=== PATIENT | female | born 1990 | race Caucasian/White ===

== ENCOUNTER 2019-12-05 19:57 | Observation (INO) ==
[2019-12-05 21:33] LABS: Bacteria,Urine Few per hpf (None-Few); Bilirubin,Urine Negative (Negative); Blood,Urine Trace (Negative); Budding Yeast,Urine Moderate per hpf (None Seen); Clarity,Urine Turbid (Clear); Color,Urine Yellow (Yellow); Glucose,Urine (UA) Normal (Normal); Ketones,Urine Negative (Negative); Leukocyte Esterase,Urine Large (Negative); Mucus,Urine Few per lpf (None-Few); Nitrite,Urine Positive (Negative); Protein,Urine Trace mg/dL (Neg-Trace); RBC,Urine 15-30 per hpf (0-3); Renal Epithelial Cells,Urine Few per hpf (None-Few); Specific Gravity,Urine 1.014 (1.010-1.025); Squamous Epithelial Cell,Urine Moderate per hpf (None-Few); Transitional Epi Cells,Urine Few per hpf (None-Few); Urobilinogen,Urine Normal (Normal); WBC,Urine TNTC per hpf (0-3)
[2019-12-05 22:19] LABS: Basophils % 0.3 %; Eosinophils % 0.3 %; Hematocrit 35.5 % (35.3-44.9); Hemoglobin 11.3 g/dL (11.5-15.4); Immature Granulocytes % 0.8 % (0-4); Lymphocytes # 1.6 K/mcL (0.6-4.6); Lymphocytes % 13.8 %; Mean Corpuscular HGB Conc 31.8 g/dL (31.6-35.5); Mean Corpuscular Hemoglobin 29.3 pg (28.0-33.3); Monocytes # 0.8 K/mcL (0.0-1.3); Monocytes % 6.5 %; Neutrophils # 9.1 K/mcL (1.6-8.9); Platelet Count 225 K/mcL (140-400); Red Blood Count 3.86 M/mcL (3.82-4.97); Red Cell Distribution Width 14.3 % (11.5-14.5); Segmented Neutrophils % 78.3 %; White Blood Count 11.7 K/mcL (4.3-11.1)
[2019-12-05] MEDS ORDERED: cefTRIAXone 1,000 MG in Water for inj. (sterile) 10 ML IVP STA (22:25)
[2019-12-05 22:36] LABS: BUN/Creatinine Ratio 12 (6-26); Blood Urea Nitrogen 8 mg/dL (6-20); Calcium 8.8 mg/dL (8.6-10.3); Carbon Dioxide 22 mEq/L (23-29); Chloride 104 mEq/L (98-107); Glucose 82 mg/dL (70-105); Osmolality,Calculated 277 (280-300); Potassium 3.8 mEq/L (3.5-5.1); Sodium 135 mEq/L (136-145); eGFR For African Americans > 60 (> 60); eGFR For Non-African Americans > 60 (> 60)
[2019-12-05] MEDS: 0.9 % Sodium Chloride 1,000 ML IVC SCH (23:01)
[2019-12-06] MEDS: ceFAZolin 2,000 MG in 0.9 % Sodium Chloride 100 ML IVPB SCH ×2 (05:28→15:06)
[2019-12-06 07:02] LABS: Basophils % 0.3 %; Eosinophils % 0.2 %; Hematocrit 30.4 % (35.3-44.9); Hemoglobin 9.4 g/dL (11.5-15.4); Immature Granulocytes % 0.9 % (0-4); Lymphocytes # 1.8 K/mcL (0.6-4.6); Lymphocytes % 14.8 %; Mean Corpuscular HGB Conc 30.9 g/dL (31.6-35.5); Mean Corpuscular Hemoglobin 28.9 pg (28.0-33.3); Mean Corpuscular Volume 93.5 fL (83.0-100.0); Mean Platelet Volume 10.3 fL (9.4-12.4); Monocytes # 1.1 K/mcL (0.0-1.3); Monocytes % 9.1 %; Neutrophils # 8.9 K/mcL (1.6-8.9); Nucleated Red Blood Cells 0.2 /100 WBC (0); Platelet Count 198 K/mcL (140-400); Red Blood Count 3.25 M/mcL (3.82-4.97); Red Cell Distribution Width 14.2 % (11.5-14.5); Segmented Neutrophils % 74.7 %; White Blood Count 11.9 K/mcL (4.3-11.1)
[2019-12-06] MEDS: 0.9 % Sodium Chloride 1,000 ML IVC SCH ×3 (07:48→21:26)
[2019-12-06] MEDS ORDERED: Fluconazole 150 MG TABLET PO ONE (10:30)
[2019-12-06 11:42] LABS: Acinetobacter baumannii by PCR Not Detected (Not Detect); Enterococcus by PCR Not Detected (Not Detect); Staphylococcus aureus by PCR Not Detected (Not Detect); Staphylococcus by PCR Not Detected (Not Detect); Streptococcus agalactiae(B)PCR Not Detected (Not Detect); Streptococcus by PCR Not Detected (Not Detect); Streptococcus pneumoniae PCR Not Detected (Not Detect); Streptococcus pyogenes (A) PCR Not Detected (Not Detect); blaKPC Carbapenem-Resist Gene Not Detected (Not Detect)
[2019-12-06 11:43] LABS: Candida albicans by PCR Not Detected (Not Detect); Candida glabrata by PCR Not Detected (Not Detect); Candida krusei by PCR Not Detected (Not Detect); Candida parapsilosis by PCR Not Detected (Not Detect); Candida tropicalis by PCR Not Detected (Not Detect); Enterobacter cloacae Cmplx PCR Not Detected (Not Detect); Escherichia coli by PCR DETECTED (Not Detect); Klebsiella oxytoca by PCR Not Detected (Not Detect); Klebsiella pneumoniae by PCR Not Detected (Not Detect); Proteus by PCR Not Detected (Not Detect); Pseudomonas aeruginosa by PCR Not Detected (Not Detect); Serratia marcescens by PCR Not Detected (Not Detect)
[2019-12-06] MEDS: Acetaminophen 325 MG TABLET PO PRN ×2 (14:32→23:40)
[2019-12-06] MEDS ORDERED: Benzocaine 20% 12 APPL GEL..GRAM. TP PRN (23:49)
[2019-12-07] MEDS: ceFAZolin 2,000 MG in 0.9 % Sodium Chloride 100 ML IVPB SCH ×2 (00:05→07:44)
[2019-12-07 05:22] LABS: Basophils % 0.4 %; Eosinophils # 0.1 K/mcL (0.0-0.6); Eosinophils % 0.7 %; Hematocrit 28.9 % (35.3-44.9); Immature Granulocytes % 1.4 % (0-4); Lymphocytes # 1.9 K/mcL (0.6-4.6); Lymphocytes % 17.9 %; Mean Corpuscular HGB Conc 31.1 g/dL (31.6-35.5); Mean Corpuscular Hemoglobin 29.3 pg (28.0-33.3); Mean Corpuscular Volume 94.1 fL (83.0-100.0); Mean Platelet Volume 10.3 fL (9.4-12.4); Monocytes % 9.6 %; Neutrophils # 7.5 K/mcL (1.6-8.9); Platelet Count 173 K/mcL (140-400); Red Blood Count 3.07 M/mcL (3.82-4.97); Red Cell Distribution Width 14.6 % (11.5-14.5); White Blood Count 10.7 K/mcL (4.3-11.1)
[2019-12-07] MEDS: 0.9 % Sodium Chloride 1,000 ML IVC SCH (07:45)
[2019-12-07 08:22] VITALS: BP 109/71
== END 2019-12-07 13:06 | disposition home or self-care (01) ==
LOC: 1NENUOBS 19:57 → EMEROOARM 19:57 → 1NENUOBS 23:10
PROVIDERS: ADMIT Obstetrics & Gynecology; ATTEND Obstetrics & Gynecology

== ENCOUNTER 2020-02-09 11:24 | Inpatient (IN) ==
[2020-02-09] MEDS ORDERED: Naloxone 0.4 MG/ML INJ IVP PRN (11:33)
[2020-02-09] MEDS ORDERED: Metoclopramide 10 MG/2 ML VIAL IVP ONE (11:34)
[2020-02-09] MEDS ORDERED: Famotidine 20 MG/2 ML VIAL IVP ONE ×2 (11:34→19:22)
[2020-02-09] MEDS ORDERED: CeFAZolin 2,000 MG/50 ML BAG IVPB ONE (11:34)
[2020-02-09] MEDS ORDERED: Oxytocin 20 units/ LR 1000 mL 20 UNIT/1,000 ML BAG IVC SCH ×3 (11:45→20:23)
[2020-02-09] MEDS ORDERED: Ringers Solution, Lactated 1,000 ML IVC SCH (11:45)
[2020-02-09] MEDS ORDERED: FLU Vac QV 20-21 (6Month+)/PF 0.5 ML SYRINGE IM ONE (12:30)
[2020-02-09] MEDS ORDERED: Acetaminophen IV 1,000 MG/100 ML BAG IVPB PRN (13:05)
[2020-02-09] MEDS ORDERED: Ondansetron 4 MG/2 ML VIAL IVP PRN ×2 (13:05→20:23)
[2020-02-09] MEDS ORDERED: *HR* HYDROmorphone PF 0.5 MG/0.5 ML SYRINGE IVP PRN ×2 (13:05→19:44)
[2020-02-09] MEDS ORDERED: *HR* Morphine Sulfate/PF 10 MG/10 ML AMPUL ONE (13:09)
[2020-02-09] MEDS ORDERED: *HR* FentaNYL (PF) 100 MCG/2 ML VIAL ONE ×2 (13:09→13:14)
[2020-02-09 13:18] LABS: Amphetamine Screen,Urine Negative ng/mL (Cutoff=1000); Barbiturate Screen,Urine Negative ng/mL (Cutoff=200); Benzodiazepines Screen,Urine Negative ng/mL (Cutoff=200); Cannabinoid Screen,Urine Positive ng/mL (Cutoff = 50); Cocaine Screen,Urine Negative ng/mL (Cutoff= 300); Opiate Screen,Urine Negative ng/mL (Cutoff=300); Phencyclidine Screen,Urine Negative ng/mL (Cutoff=25)
[2020-02-09 13:28] LABS: Basophils % 0.4 %; Eosinophils # 0.2 K/mcL (0.0-0.6); Eosinophils % 1.5 %; Hematocrit 32.4 % (35.3-44.9); Hemoglobin 9.8 g/dL (11.5-15.4); Immature Granulocytes % 0.8 % (0-4); Lymphocytes # 3.1 K/mcL (0.6-4.6); Lymphocytes % 29.5 %; Mean Corpuscular HGB Conc 30.2 g/dL (31.6-35.5); Mean Corpuscular Hemoglobin 25.6 pg (28.0-33.3); Mean Corpuscular Volume 84.6 fL (83.0-100.0); Mean Platelet Volume 11.3 fL (9.4-12.4); Monocytes # 0.7 K/mcL (0.0-1.3); Monocytes % 6.8 %; Neutrophils # 6.4 K/mcL (1.6-8.9); Platelet Count 343 K/mcL (140-400); Red Blood Count 3.83 M/mcL (3.82-4.97); Red Cell Distribution Width 15.8 % (11.5-14.5); White Blood Count 10.5 K/mcL (4.3-11.1)
[2020-02-09 14:03] LABS: Adenovirus Not Detected (Not Detect); Bordetella Pertussis Not Detected (Not Detect); Chlamydophila pneumoniae Not Detected (Not Detect); Coronavirus 229E Not Detected (Not Detect); Coronavirus HKU1 Not Detected (Not Detect); Coronavirus NL63 Not Detected (Not Detect); Coronavirus OC43 Not Detected (Not Detect); Human Metapneumovirus Not Detected (Not Detect); Human Rhinovirus/Enterovirus Not Detected (Not Detect); Influenza A Subtype 2009 H1 Not Detected (Not Detect); Influenza B Not Detected (Not Detect); Mycoplasma pneumoniae Not Detected (Not Detect); Parainfluenza Virus 1 Not Detected (Not Detect); Parainfluenza Virus 2 Not Detected (Not Detect); Parainfluenza Virus 3 Not Detected (Not Detect); Parainfluenza Virus 4 Not Detected (Not Detect); Respiratory Syncytial Virus Not Detected (Not Detect); SARS-CoV-2 Not Detected (Not Detect)
[2020-02-09] MEDS ORDERED: *HR* HYDROMORPHONE 2 MG/ML VIAL ONE (17:45)
[2020-02-09] MEDS ORDERED: Acetaminophen 325 MG TABLET PO PRN (20:23)
[2020-02-09] MEDS ORDERED: Rho Immune Globulin 1,500 UNIT SYRINGE IM ONE (20:23)
[2020-02-09] MEDS ORDERED: Sennosides 8.6 MG TABLET PO PRN (20:23)
[2020-02-09] MEDS ORDERED: Metoclopramide 10 MG/2 ML VIAL IVP PRN (20:23)
[2020-02-09] MEDS ORDERED: Simethicone 80 MG TAB.CHEW PO PRN (20:23)
[2020-02-09] MEDS ORDERED: *HR* OxyCODONE Immed Rel 5 MG TABLET PO PRN (20:23)
[2020-02-10] MEDS ORDERED: Ondansetron 4 MG/2 ML VIAL IVP PRN (00:55)
[2020-02-10] MEDS ORDERED: Ketorolac 15 MG/ML VIAL IVP ONE (00:56)
[2020-02-10 04:33] LABS: Basophils % 0.3 %; Eosinophils # 0.1 K/mcL (0.0-0.6); Eosinophils % 0.8 %; Hematocrit 24.8 % (35.3-44.9); Immature Granulocytes % 0.5 % (0-4); Lymphocytes # 2.2 K/mcL (0.6-4.6); Lymphocytes % 16.4 %; Mean Corpuscular HGB Conc 30.2 g/dL (31.6-35.5); Mean Corpuscular Hemoglobin 26.2 pg (28.0-33.3); Mean Corpuscular Volume 86.7 fL (83.0-100.0); Mean Platelet Volume 11.3 fL (9.4-12.4); Monocytes # 0.6 K/mcL (0.0-1.3); Monocytes % 4.7 %; Neutrophils # 10.2 K/mcL (1.6-8.9); Platelet Count 253 K/mcL (140-400); Red Blood Count 2.86 M/mcL (3.82-4.97); Red Cell Distribution Width 15.8 % (11.5-14.5); Segmented Neutrophils % 77.3 %; White Blood Count 13.2 K/mcL (4.3-11.1)
[2020-02-10 04:36] LABS: Hemoglobin 7.5 g/dL (11.5-15.4)
[2020-02-10] MEDS: Ibuprofen 600 MG TABLET PO PRN ×3 (07:28→19:35)
[2020-02-10] MEDS: Prenatal Vit/FA 1 EACH TABLET PO SCH (07:29)
[2020-02-10] MEDS: *HR* OxyCODONE/APAP 5/325 TABLET PO PRN ×4 (07:42→21:47)
[2020-02-10] MEDS ORDERED: Ferumoxytol 510 MG in 0.9 % Sodium Chloride 100 ML IVPB ONE (09:15)
[2020-02-11] MEDS: *HR* OxyCODONE/APAP 5/325 TABLET PO PRN ×3 (06:19→16:44)
[2020-02-11] MEDS: Ibuprofen 600 MG TABLET PO PRN ×2 (06:19→16:45)
[2020-02-11] MEDS: Prenatal Vit/FA 1 EACH TABLET PO SCH (11:06)
[2020-02-11] MEDS ORDERED: Nicotine 21 MG PATCH.TD24 TD SCH (15:30)
[2020-02-12] MEDS: *HR* OxyCODONE/APAP 5/325 TABLET PO PRN ×3 (00:21→13:08)
[2020-02-12] MEDS: Ibuprofen 600 MG TABLET PO PRN ×2 (00:22→13:07)
[2020-02-12] MEDS: Prenatal Vit/FA 1 EACH TABLET PO SCH (08:07)
[2020-02-12 08:21] VITALS: BP 121/78
[2020-02-12 10:50] LABS: Basophils # 0.1 K/mcL (0.0-0.2); Basophils % 0.4 %; Eosinophils # 0.3 K/mcL (0.0-0.6); Eosinophils % 2.8 %; Hematocrit 28.5 % (35.3-44.9); Hemoglobin 8.4 g/dL (11.5-15.4); Immature Granulocytes % 1.1 % (0-4); Lymphocytes # 3.1 K/mcL (0.6-4.6); Lymphocytes % 27.5 %; Mean Corpuscular HGB Conc 29.5 g/dL (31.6-35.5); Mean Corpuscular Hemoglobin 25.7 pg (28.0-33.3); Mean Corpuscular Volume 87.2 fL (83.0-100.0); Mean Platelet Volume 10.1 fL (9.4-12.4); Monocytes # 0.6 K/mcL (0.0-1.3); Monocytes % 5.3 %; Neutrophils # 7.1 K/mcL (1.6-8.9); Platelet Count 365 K/mcL (140-400); Red Blood Count 3.27 M/mcL (3.82-4.97); Red Cell Distribution Width 15.9 % (11.5-14.5); Segmented Neutrophils % 62.9 %; White Blood Count 11.3 K/mcL (4.3-11.1)
== END 2020-02-12 13:55 | disposition home or self-care (01) | DRG 540 ==
LOC: 1NENULAB 11:24 → 1NENUOBS 20:22
PROVIDERS: ADMIT Obstetrics & Gynecology; ATTEND Obstetrics & Gynecology